=== PATIENT | female | born 1975 | race Caucasian/White ===

== ENCOUNTER 2017-03-09 16:37 | Emergency (ER) | payer OTHER ==
[~2017-03-09 16:37] MED LIST: AMBIEN CR12.5 MG PO; ASPIR 8181 MG PO; CHANTIX1 MG PO; CHLORTHALIDONE25 MG PO; CYCLOBENZAPRINE10 MG PO; FLEXERIL 10 MG10 MG PO; IBUPROFEN800 MG PO; IMITREX50 MG PO; KLONOPIN TAB 00.5 MG PO; KLONOPIN0.5 MG PO; LEVOTHYROXINE88 MCG PO; LOPRESSOR 25 MG25 MG PO; NEURONTIN 400400 MG PO; NITROGLYCERIN0.4 MG SL; PERCOCET 10-321 EACH PO; PHENERGAN 12.12.5 M1 PO; PREMARIN 1.251.25 MG GT; PREMARIN 1.251.25 MG PO; ZANTAC 150 MG150 MG PO; ZYRTEC10 MG PO
[2017-03-09 18:38] LABS: HEMOGLOBIN 14.8 gm/dl (12.3-15.3); RED BLOOD COUNT 4.61 M/UL (4.00-5.10); WHITE BLOOD COUNT 11.7 K/UL (4.5-11.0)
[2017-03-09 19:04] LABS: BUN/CREATININE RATIO 16 (0-10)
== END 2017-03-09 22:19 | disposition home or self-care (01) ==
LOC: ER1 16:37
PROVIDERS: Family Medicine
DX: G89.29 Other chronic pain (principal); G43.909 Migraine, unspecified, not intractable, without status migrainosus; R07.9 Chest pain, unspecified; F17.200 Nicotine dependence, unspecified, uncomplicated; Z88.2 Allergy status to sulfonamides; Z88.8 Allergy status to other drugs, medicaments and biological substances; Z79.899 Other long term (current) drug therapy; Z79.891 Long term (current) use of opiate analgesic
CPT/HCPCS: 36415; 70450; 71010; 80053; 82550; 82553; 83874; 84484; 85025; 85379; 93005; 96374; 96375; 96376; 99285; J1100; J1200; J1885; J2270; J2765; J7030